=== PATIENT | male | born 1995 | race Caucasian/White ===

== ENCOUNTER 2016-11-09 11:02 | Emergency (ER) | payer OTHER | END 2016-11-09 13:50 | disposition home or self-care (01) | LOC: ER1 11:02 | DX: J02.0 Streptococcal pharyngitis (principal); F17.200 Nicotine dependence, unspecified, uncomplicated | CPT/HCPCS: 87081; 87880; 99282 ==

== ENCOUNTER 2021-07-16 11:06 | Emergency (ER) | payer SELFPAY ==
[~2021-07-16 11:06] MED LIST: BACTRIM DS TAB1 EACH PO; CIPRO500 MG PO; K-DUR TAB 10 M10 MEQ PO; KEFLEX CAP 500500 MG PO; KEFLEX500 MG PO; LODINE CAP 300300 MG PO; NAPROSYN500 MG PO; OMNICEF 300 MG300 MG PO
== END 2021-07-16 11:44 | disposition home or self-care (01) ==
LOC: ER1 11:06
DX: Z20.822 Contact with and (suspected) exposure to COVID-19 (principal); F17.200 Nicotine dependence, unspecified, uncomplicated
CPT/HCPCS: 99283; U0003